=== PATIENT | female | born 1950 | race Caucasian/White ===

== ENCOUNTER 2021-05-04 07:36 | Inpatient (IN) | payer MEDICARE, SELFPAY ==
[2021-05-04] MEDS ORDERED: Acetaminophen 325 MG TAB PO PRN (10:38)
[2021-05-04] MEDS ORDERED: hydrALAZINE 20 MG/ML VIAL SLOW IVP PRN (10:38)
[2021-05-04 10:52] VITALS: BMI 20.5
[2021-05-04] MEDS ORDERED: Azithromycin 500 MG in Sodium Chloride 0.9% 250 ML 250 ML IVPB SCH (11:00)
[2021-05-04] MEDS ORDERED: cefTRIAXone\\ROCEPHIN 1 GM in Sodium Chloride 0.9% 100 ML IVPB SCH (13:00)
[2021-05-04] MEDS ORDERED: FLU VACC QS2021-22(65YR UP)/PF 240 MCG/0.7 ML SYRINGE IM ONE (16:00)
[2021-05-04 17:16] LABS: SARS-CoV-2 NAA Rapid Test Not Detected (NotDetected)
[2021-05-04] MEDS: Nicotine 14 MG PATCH TD SCH (17:18)
[2021-05-04] MEDS: methylPREDNISolone Sod Succ 40 MG VIAL IVP SCH (20:34)
[2021-05-05 05:31] LABS: Anion Gap 12 mmol/L (10-20); BUN (Urea Nitrogen) 11 mg/dL (9.8-20.1); Calc. Creatinine Clearance 74 mL/min (70-130); Calcium 8.7 mg/dL (7.8-10.44); Carbon Dioxide 29 mmol/L (23-31); Chloride 104 mmol/L (98-107); Glucose 123 mg/dL (83-110); Potassium 3.6 mmol/L (3.5-5.1); Sodium 141 mmol/L (136-145)
[2021-05-05] MEDS: Levothyroxine Sodium 50 MCG TAB PO SCH (06:13)
[2021-05-05] MEDS ORDERED: Loperamide HCl 2 MG CAP PO PRN (06:29)
[2021-05-05] MEDS ORDERED: Bisacodyl 5 MG TAB PO PRN (06:29)
[2021-05-05] MEDS ORDERED: Ondansetron PF 4 MG/2 ML Vial IVP PRN (06:29)
[2021-05-05] MEDS ORDERED: Ondansetron ODT 4 MG TAB PO PRN (06:29)
[2021-05-05] MEDS ORDERED: Benzonatate 100 MG CAP PO PRN (06:29)
[2021-05-05] MEDS ORDERED: Hydrocerin (Eucerin) Cream 120 gm Jar TOP PRN (06:29)
[2021-05-05] MEDS ORDERED: Loratadine 10 MG TAB PO PRN (06:29)
[2021-05-05] MEDS ORDERED: Zolpidem Tartrate 5 MG TAB PO PRN (06:29)
[2021-05-05] MEDS ORDERED: Calcium Carbonate 500 MG ChewTAB PO PRN (06:29)
[2021-05-05] MEDS ORDERED: GUAIFENESIN SF SOLN 200 MG/10 ML UDCUP PO PRN (06:29)
[2021-05-05] MEDS ORDERED: Artificial Tear Sol 15 ML BOT EA EYE PRN (06:29)
[2021-05-05] MEDS ORDERED: Senokot S 8.6-50 MG TAB PO PRN (06:29)
[2021-05-05] MEDS ORDERED: Sodium Chloride 0.65% Nasal 44 ML BOT EA NARE PRN (06:29)
[2021-05-05] MEDS ORDERED: Cepastat Lozenges 1 LOZ PO PRN (06:29)
[2021-05-05] MEDS: Dicyclomine 10 MG CAP PO SCH ×4 (07:52→20:22)
[2021-05-05] MEDS: HYDROcodone/Acetaminophen 5/325 mg Tablet PO PRN ×3 (07:52→20:23)
[2021-05-05] MEDS: Gabapentin 300 MG CAP PO SCH ×3 (07:53→20:23)
[2021-05-05] MEDS: methylPREDNISolone Sod Succ 40 MG VIAL IVP SCH ×2 (07:53→20:21)
[2021-05-05] MEDS: Enoxaparin Sodium 40 MG/0.4 ML SYRINGE SC SCH (07:54)
[2021-05-05 08:30] LABS: Anisocytosis SLIGHT = 6-15 cells (100X) (0-5/hpf); Band 15 % (5-11); Hemoglobin 10.5 g/dL (12.0-16.0); Lymphocytes 8 % (21-51); MDiff Complete? YES; Mean Corpuscular HGB CONC 30.6 g/dL (32.0-36.0); Mean Corpuscular Hemoglobin 27.2 pg (27.0-31.0); Mean Corpuscular Volume 88.9 fL (78.0-98.0); Mean Platelet Volume 7.8 fL (7.4-10.4); Neutrophil 77 % (42-75); Platelet Count 257 thou/uL (130-400); Poikilocytosis SLIGHT = 6-15 cells (100X) (0-5/hpf); RBC Distribution Width 14.6 % (11.5-14.5); Red Blood Cell (RBC) Count 3.88 mill/uL (4.20-5.40); White Blood Cell (WBC) Count 12.7 thou/uL (4.8-10.8)
[2021-05-05] MEDS: LACTINEX 1 TAB PO SCH ×2 (10:38→20:21)
[2021-05-05] MEDS: Nicotine 14 MG PATCH TD SCH (16:06)
[2021-05-05] MEDS ORDERED: Atorvastatin Calcium 10 MG TAB PO SCH (21:00)
[2021-05-05] MEDS ORDERED: Amitriptyline HCl 25 MG TAB PO SCH (21:00)
[2021-05-06] MEDS: HYDROcodone/Acetaminophen 5/325 mg Tablet PO PRN (05:05)
[2021-05-06] MEDS: Levothyroxine Sodium 50 MCG TAB PO SCH (05:05)
[2021-05-06] MEDS ORDERED: predniSONE 20 MG TAB PO SCH (08:00)
[2021-05-06 08:30] VITALS: TEMP 98.2
[2021-05-06] MEDS: LACTINEX 1 TAB PO SCH (08:30)
[2021-05-06] MEDS: Gabapentin 300 MG CAP PO SCH (08:31)
[2021-05-06] MEDS: Dicyclomine 10 MG CAP PO SCH (08:32)
[2021-05-06] MEDS: Enoxaparin Sodium 40 MG/0.4 ML SYRINGE SC SCH (08:33)
[2021-05-06] MEDS ORDERED: Nystatin 500,000 UNITS/5 ML UDCUP SSW SCH (10:45)
[2021-05-06 11:36] VITALS: BP 161/82
== END 2021-05-06 11:43 | disposition home or self-care (01) | DRG 189 ==
LOC: T4-B 07:36 → EDBD 07:36
PROVIDERS: ADMIT Internal Medicine; ATTEND Family Medicine
DX: J96.21 Acute and chronic respiratory failure with hypoxia (principal); J44.1 Chronic obstructive pulmonary disease with (acute) exacerbation; Z20.822 Contact with and (suspected) exposure to COVID-19; I10 Essential (primary) hypertension; E78.5 Hyperlipidemia, unspecified; F17.210 Nicotine dependence, cigarettes, uncomplicated; F32.A Depression, unspecified; E03.9 Hypothyroidism, unspecified; M81.0 Age-related osteoporosis without current pathological fracture; Z28.21 Immunization not carried out because of patient refusal; Z88.0 Allergy status to penicillin; Z88.2 Allergy status to sulfonamides; Z90.49 Acquired absence of other specified parts of digestive tract; Z90.710 Acquired absence of both cervix and uterus; Z98.42 Cataract extraction status, left eye; Z83.6 Family history of other diseases of the respiratory system; Z82.49 Family history of ischemic heart disease and other diseases of the circulatory system; Z71.6 Tobacco abuse counseling; Z79.899 Other long term (current) drug therapy; Z79.890 Hormone replacement therapy
CPT/HCPCS: 0241U; 80048; 85025; 94640; J0456; J0696; J1650; J2920; J3490; J7050; J7512; J7620

== ENCOUNTER 2021-06-01 00:07 | Inpatient (IN) | payer MEDICARE ==
[2021-06-01 02:42] VITALS: BMI 22.6
[2021-06-01] MEDS ORDERED: Ondansetron PF 4 MG/2 ML Vial IVP PRN (03:07)
[2021-06-01] MEDS ORDERED: Acetaminophen 325 MG TAB PO PRN (03:07)
[2021-06-01] MEDS: Cefepime 2 GM in Sodium Chloride 0.9% 100 ML IVPB SCH ×2 (04:19→16:33)
[2021-06-01 04:46] LABS: #Lymphocytes 0.7 thou/uL (1.20-3.40); #Monocytes 0.2 thou/uL (0.11-0.59); #Neutrophils 8.6 thou/uL (1.40-6.50); %Basophils 0.2 % (0.0-1.0); %Eosinophils 0.1 % (0.0-10.0); %Neutrophils 90.8 % (42.0-75.0); Hemoglobin 11.5 g/dL (12.0-16.0); Mean Corpuscular HGB CONC 30.7 g/dL (32.0-36.0); Mean Corpuscular Hemoglobin 27.1 pg (27.0-31.0); Mean Corpuscular Volume 88.4 fL (78.0-98.0); Mean Platelet Volume 7.2 fL (7.4-10.4); Platelet Count 308 thou/uL (130-400); RBC Distribution Width 15.8 % (11.5-14.5); Red Blood Cell (RBC) Count 4.25 mill/uL (4.20-5.40); White Blood Cell (WBC) Count 9.5 thou/uL (4.8-10.8)
[2021-06-01 06:01] LABS: Anion Gap 13 mmol/L (10-20); BUN (Urea Nitrogen) 9 mg/dL (9.8-20.1); Calc. Creatinine Clearance 69 mL/min (70-130); Calcium 8.6 mg/dL (7.8-10.44); Carbon Dioxide 28 mmol/L (23-31); Chloride 106 mmol/L (98-107); Glucose 216 mg/dL (83-110); Potassium 3.9 mmol/L (3.5-5.1); Sodium 143 mmol/L (136-145)
[2021-06-01] MEDS: HYDROcodone/Acetaminophen 7.5/325 mg Tablet PO PRN ×2 (06:15→20:26)
[2021-06-01] MEDS: Levothyroxine Sodium 50 MCG TAB PO SCH (06:15)
[2021-06-01] MEDS: Gabapentin 300 MG CAP PO SCH ×3 (09:54→20:24)
[2021-06-01] MEDS: predniSONE 5 MG TAB PO SCH (09:54)
[2021-06-01] MEDS: Enoxaparin Sodium 40 MG/0.4 ML SYRINGE SC SCH (09:54)
[2021-06-01] MEDS: Dicyclomine 10 MG CAP PO SCH ×3 (14:17→20:24)
[2021-06-01] MEDS: Vancomycin HCl 750 MG in Sodium Chloride 0.9% 250 ML 250 ML IVPB SCH (14:17)
[2021-06-01 17:04] LABS: Legionella Urinary Ag Negative (Negative); Strep pneumo Urine Ag NEGATIVE (NEGATIVE)
[2021-06-01 20:01] LABS: SARS-CoV-2 PCR by NAA Not Detected (NotDetected)
[2021-06-01] MEDS: Amitriptyline HCl 25 MG TAB PO SCH (20:25)
[2021-06-01] MEDS: Atorvastatin Calcium 10 MG TAB PO SCH (20:26)
[2021-06-01] MEDS ORDERED: Pravastatin Sodium 40 MG TAB PO SCH (21:00)
[2021-06-01] MEDS ORDERED: Non-Formulary Item 1 EACH (Amitriptyline Hcl [Amitriptyline Hcl] 50 MG Tablet) PO SCH (21:00)
[2021-06-02] MEDS: Vancomycin HCl 750 MG in Sodium Chloride 0.9% 250 ML 250 ML IVPB SCH (00:33)
[2021-06-02] MEDS: Cefepime 2 GM in Sodium Chloride 0.9% 100 ML IVPB SCH ×2 (04:08→18:14)
[2021-06-02 05:20] LABS: #Basophils 0.1 thou/uL (0.0-0.2); #Lymphocytes 1.6 thou/uL (1.20-3.40); #Monocytes 0.6 thou/uL (0.11-0.59); %Basophils 0.7 % (0.0-1.0); %Eosinophils 0.2 % (0.0-10.0); %Lymphocytes 16.9 % (21.0-51.0); %Monocytes 6.4 % (0.0-10.0); %Neutrophils 75.8 % (42.0-75.0); Hemoglobin 11.4 g/dL (12.0-16.0); Mean Corpuscular HGB CONC 29.7 g/dL (32.0-36.0); Mean Corpuscular Hemoglobin 26.7 pg (27.0-31.0); Mean Corpuscular Volume 90.1 fL (78.0-98.0); Mean Platelet Volume 7.1 fL (7.4-10.4); Platelet Count 318 thou/uL (130-400); Red Blood Cell (RBC) Count 4.25 mill/uL (4.20-5.40); White Blood Cell (WBC) Count 9.3 thou/uL (4.8-10.8)
[2021-06-02 05:33] LABS: ALT (SGPT) 8 U/L (8-55); AST (SGOT) 9 U/L (5-34); Albumin 2.9 g/dL (3.4-4.8); Alkaline Phosphatase 74 U/L (40-110); Anion Gap 11 mmol/L (10-20); BUN (Urea Nitrogen) 7 mg/dL (9.8-20.1); Bilirubin, Total 0.2 mg/dL (0.2-1.2); Calc. Creatinine Clearance 74 mL/min (70-130); Carbon Dioxide 27 mmol/L (23-31); Chloride 108 mmol/L (98-107); Globulin 2.8 g/dL (2.4-3.5); Glucose 117 mg/dL (83-110); Potassium 4.2 mmol/L (3.5-5.1); Protein, Total 5.7 g/dL (5.8-8.1); Sodium 142 mmol/L (136-145)
[2021-06-02] MEDS: Levothyroxine Sodium 50 MCG TAB PO SCH (05:42)
[2021-06-02] MEDS ORDERED: Furosemide 20 MG/2 ML VIAL SLOW IVP SCH (08:30)
[2021-06-02] MEDS: predniSONE 5 MG TAB PO SCH (09:56)
[2021-06-02] MEDS: Enoxaparin Sodium 40 MG/0.4 ML SYRINGE SC SCH (09:57)
[2021-06-02] MEDS: Gabapentin 300 MG CAP PO SCH ×3 (09:57→20:32)
[2021-06-02] MEDS: Dicyclomine 10 MG CAP PO SCH ×4 (09:57→20:32)
[2021-06-02 12:17] LABS: Vancomycin, Trough 13.1 ug/mL
[2021-06-02] MEDS: Vancomycin 1 GM in Premix Bag 1 BAG IVPB SCH (15:07)
[2021-06-02] MEDS: Amitriptyline HCl 25 MG TAB PO SCH (20:32)
[2021-06-02] MEDS: Atorvastatin Calcium 10 MG TAB PO SCH (20:32)
[2021-06-02] MEDS: HYDROcodone/Acetaminophen 7.5/325 mg Tablet PO PRN (20:36)
[2021-06-03] MEDS: Vancomycin 1 GM in Premix Bag 1 BAG IVPB SCH (00:46)
[2021-06-03] MEDS: Cefepime 2 GM in Sodium Chloride 0.9% 100 ML IVPB SCH (04:52)
[2021-06-03] MEDS: Levothyroxine Sodium 50 MCG TAB PO SCH (05:49)
[2021-06-03] MEDS: predniSONE 5 MG TAB PO SCH (09:04)
[2021-06-03] MEDS: Enoxaparin Sodium 40 MG/0.4 ML SYRINGE SC SCH (09:05)
[2021-06-03] MEDS: Dicyclomine 10 MG CAP PO SCH (09:06)
[2021-06-03] MEDS: Gabapentin 300 MG CAP PO SCH (09:07)
[2021-06-03 10:05] LABS: ALT (SGPT) 9 U/L (8-55); AST (SGOT) 10 U/L (5-34); Albumin 3.4 g/dL (3.4-4.8); Alkaline Phosphatase 76 U/L (40-110); Anion Gap 10 mmol/L (10-20); BUN (Urea Nitrogen) 6 mg/dL (9.8-20.1); Bilirubin, Total 0.4 mg/dL (0.2-1.2); Calc. Creatinine Clearance 71 mL/min (70-130); Calcium 9.5 mg/dL (7.8-10.44); Carbon Dioxide 36 mmol/L (23-31); Chloride 100 mmol/L (98-107); Globulin 2.8 g/dL (2.4-3.5); Glucose 85 mg/dL (83-110); Potassium 3.4 mmol/L (3.5-5.1); Protein, Total 6.2 g/dL (5.8-8.1); Sodium 143 mmol/L (136-145)
[2021-06-03 10:17] LABS: Hemoglobin 12.1 g/dL (12.0-16.0); Mean Corpuscular HGB CONC 28.9 g/dL (32.0-36.0); Mean Corpuscular Hemoglobin 25.6 pg (27.0-31.0); Mean Corpuscular Volume 88.7 fL (78.0-98.0); Platelet Count 391 thou/uL (130-400); Red Blood Cell (RBC) Count 4.73 mill/uL (4.20-5.40); White Blood Cell (WBC) Count 11.2 thou/uL (4.8-10.8)
[2021-06-03 10:18] LABS: #Basophils 0.1 thou/uL (0.0-0.2); #Eosinphils 0.1 thou/uL (0.0-0.7); #Lymphocytes 2.8 thou/uL (1.20-3.40); #Monocytes 0.7 thou/uL (0.11-0.59); #Neutrophils 7.5 thou/uL (1.40-6.50); %Basophils 0.8 % (0.0-1.0); %Eosinophils 0.9 % (0.0-10.0); %Lymphocytes 25.3 % (21.0-51.0); %Monocytes 5.9 % (0.0-10.0); %Neutrophils 67.2 % (42.0-75.0)
[2021-06-03] MEDS ORDERED: HYDROcodone/Acetaminophen 7.5/325 mg Tablet PO PRN (10:34)
[2021-06-03 10:50] LABS: MDiff Complete? YES; Platelet Morphology Comment Appears Adequate; Polychromasia SLIGHT = 2-3 cells (100X) (0-2/hpf)
[2021-06-03 12:07] VITALS: BP 146/76; TEMP 98.1
[2021-06-07 14:55] LABS: Ref Lab Test Ordered RESP PROFILE; Reference Lab Name LABCORP
== END 2021-06-03 13:20 | disposition home or self-care (01) | DRG 871 ==
LOC: 2NO 01:57
PROVIDERS: ADMIT Internal Medicine; ATTEND Family Medicine
DX: A41.50 Gram-negative sepsis, unspecified (principal); J96.01 Acute respiratory failure with hypoxia; J15.6 Pneumonia due to other Gram-negative bacteria; J44.1 Chronic obstructive pulmonary disease with (acute) exacerbation; J44.0 Chronic obstructive pulmonary disease with (acute) lower respiratory infection; I50.32 Chronic diastolic (congestive) heart failure; R65.20 Severe sepsis without septic shock; Z66 Do not resuscitate; M06.9 Rheumatoid arthritis, unspecified; G89.4 Chronic pain syndrome; M81.8 Other osteoporosis without current pathological fracture; T38.0X5A Adverse effect of glucocorticoids and synthetic analogues, initial encounter; E03.9 Hypothyroidism, unspecified; F32.A Depression, unspecified; F17.210 Nicotine dependence, cigarettes, uncomplicated; I11.0 Hypertensive heart disease with heart failure; Z79.52 Long term (current) use of systemic steroids; Z88.1 Allergy status to other antibiotic agents; Z88.2 Allergy status to sulfonamides; Z79.890 Hormone replacement therapy; Z90.710 Acquired absence of both cervix and uterus; Z90.49 Acquired absence of other specified parts of digestive tract; Z79.899 Other long term (current) drug therapy
CPT/HCPCS: 36415; 71046; 80048; 80053; 80202; 84145; 85025; 87070; 87081; 87205; 87449; 87633; 87899; 93306; J0692; J1650; J1940; J3370; J3490; J7050; J7512; J7620; U0003; U0005